=== PATIENT | male | born 1935 | race Caucasian/White ===

== ENCOUNTER 2022-01-12 01:42 | Emergency (ER) | payer MEDICARE, OTHER, SELFPAY ==
[2022-01-12] VITALS (8 sets, daily range): BP systolic 135–149; BP diastolic 73–86; PULSE 64–85; RESP 17–31; TEMP 36.5; O2SAT 91–100; BMI 28.3
--- NOTE | 2022-01-12 01:51 | ED_ITS ---
HPI - Altered Mental Status General Chief Complaint: Dizziness Stated Complaint: hyperglycemia, not feeling right Time Seen by Provider: 01/12/22 01:50 History of Present Illness HPI narrative: Patient is an 86-year-old male with history of insulin-dependent diabetes,vertigo, atrial fibrillation on aspirin presenting today with high glucose and not feeling well. He said he was in his normal state of health earlier today this evening he indulged on a chocolate Blizzard, which he thor oughly enjoyed but then felt his glucose was elevated. At home it was in the low 400 EMS reports that at 355 He is shaky and just does not feel quite right. He has no chest pain or palpitations. 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 He has no numbness tingling or weakness. He has not had any fevers but is quite cold and shaky. He states he is dizzy usually in the mornings. Some days more so than others, however he usually is not this bad. He denies any nausea or vomiting. He is able to open is a has without difficulty. Related Data Home Medications Medication Instructions Recorded Confirmed ESOMEPRAZOLE SODIUM (NEXIUM) 20 mg PO QDAY #0 03/09/12 [CALCIUM ] 600 mg PO QDAY #0 03/09/12 [CINNAMON ] 500 mg PO QDAY #0 03/09/12 [FISH OIL] 1,200 mg PO QDAY #0 03/09/12 aspirin 325 mg tablet,delayed 325 mg PO QDAY #0 03/09/12 release carvedilol 12.5 mg tablet (Coreg) 12.5 mg PO BID #0 03/09/12 furosemide 40 mg tablet 40 mg PO QDAY #0 03/09/12 gemfibrozil 600 mg tablet 600 mg PO BID #0 03/09/12 sertraline 50 mg tablet 50 mg PO QDAY #0 03/09/12 [CINNAMON] 1,000 mg PO BID #0 09/16/17 [COQ10] 300 mg PO QDAY #0 09/16/17 atorvastatin 10 mg tablet (Lipitor) 10 mg PO QDAY #0 09/16/17 gabapentin 300 mg capsule 300 mg PO HSP PRN #0 09/16/17 (Neurontin) insulin glargine 100 unit/mL (3 5 unit SQ QDAY #0 09/16/17 mL) subcutaneous pen (Lantus Solostar U-100 Insulin) lisinopril 2.5 mg tablet 2.5 mg PO QDAY #0 09/16/17 metformin 500 mg tablet 500 mg PO BIDCC #0 09/16/17 (Glucophage) pantoprazole 20 mg tablet,delayed 40 mg PO QDAY #0 09/16/17 release (Protonix) torsemide 20 mg tablet 20 mg PO QDAY #0 09/16/17 Previous Rx's Medication Instructions Recorded cephalexin 500 mg capsule (Keflex) 500 mg PO Q6H #21 cap 09/16/17 meclizine 25 mg tablet 25 mg PO TID PRN #10 tab 01/12/22 Allergies Allergy/AdvReac Type Severity Reaction Status Date / Time codeine [CODEINE] Allergy Intermediate Unverified 11/19/17 12:00 niacin [NIACIN] Allergy Unknown Unverified 11/19/17 12:00 doxycycline [DOXYCYCLINE] AdvReac Unknown HEADACHE Unverified 11/19/17 12:00 Review of Systems Review of Systems Narrative: GENERAL: See HPI HEENT: Denies sinus pain, ear pain, sore throat, difficulty swallowing, neck pain RESPIRATORY: Denies dyspnea, cough, wheezing, hemoptysis, sputum. CARDIOVASCULAR: See HPI GASTROINTESTINAL: Denies nausea, vomiting, abdominal pain, diarrhea, constipation, melena. : Denies dysuria, frequency, incontinence, hematuria, urinary retention, flank pain. MUSCULOSKELETAL: Denies weakness, joint pain, or bony pain SKIN: No rash, no erythema, no pruritus NEUROLOGIC: Denies weakness, dizziness, headache, numbness, change in speech, confusion PSYCHIATRIC: No concerning psychosocial issues. 12 point review of systems is negative except for those stated above and HPI Patient History Medical History (Updated 01/12/22 @ 06:32 by Lidia Sawyer DO) Diabetes Exam Initial Vital Signs Initial Vital Signs: Vital Signs Blood Pressure 143/75 H 01/12/22 01:50 GENERAL: Alert 86-year-old male no acute distress HEENT: Head atraumatic,EOMI, pupils reactive, face symmetric no nystagmus moist mucous membranes CARDIOVASCULAR: Irregularly irregular RESPIRATORY: Breath sounds equal bilaterally, no wheezes rales or rhonchi. ABDOMEN: Soft, nontender. Normoactive bowel sounds all 4 quadrants. No guarding or rebound. EXTREMITIES: Normal range of motion, no clubbing or edema. Neurovascularly int act. Pain and limited range of motion in left shoulder. Also pain left hip been limited range of motion. NEUROLOGICAL: Alert and oriented x4.Normal gait and speech. [facility] strength equal bilaterally moving all extremities SKIN: Warm, dry, no laceration, no petechiae, no rashes or lesions. Course Orders Ordered: ED Orders 01/12/22 01:51 CT head/brain wo con Stat XR chest 1V Stat EKG-12 Lead Stat 01/12/22 02:22 BNP [NT-proBNP (BNP-Adult 18+)] Stat Complete Blood Count AUTO DIFF Stat Comprehensive Metabolic Panel Stat Lactate (Lactic Acid) Stat Lipase Stat Partial Thromboplastin Time Stat Procalcitonin Stat Prothrombin Time INR Stat Troponin & CK Cardiac Panel Stat Discontinued Medications Sodium Chloride (Normal Saline 0.9%) 1,000 mls @ 150 mls/hr IV CONT JAYLON Last Infusion: 01/12/22 04:14 Dose: 0 mls/hr Documented by: Admin: 01/12/22 02:39 Dose: 150 mls/hr Documented by: IVA Meclizine HCl (Meclizine Hcl 12.5 Mg Tablet) 25 mg PO NOW ONE Stop: 01/12/22 03:11 Last Admin: 01/12/22 03:21 Dose: 25 mg Documented by: IVA Vital Signs Vital signs: Vital Signs - 8 hr 01/12/22 01:50 01/12/22 01:51 01/12/22 01:59 Temperature 97.7 F Pulse Rate 75 85 Respiratory Rate 20 Blood Pressure 143/75 H 143/75 H Pulse Oximetry 91 01/12/22 02:02 01/12/22 02:30 01/12/22 02:38 Temperature Pulse Rate 82 80 69 Respiratory Rate 31 H 23 Blood Pressure 135/86 Pulse Oximetry 97 100 100 01/12/22 03:00 01/12/22 03:30 Temperature Pulse Rate 66 64 Respiratory Rate 17 21 Blood Pressure 149/76 H 145/73 H Pulse Oximetry 99 98 MDM - Altered Mental Status Lab Data Result diagrams: 01/12/22 02:22 01/12/22 02:22 Labs: Lab Results 01/12/22 01/12/22 01/12/22 Range/Units 02:22 02:22 02:22 WBC 7.1 (4.5-11.0) X10^3/uL RBC 4.03 L (4.5-5.9) X10^6/uL Hgb 12.6 L (13.5-17.5) g/dL Hct 36.6 L (41-53) % MCV 90.7 (80-100) fL MCH 31.2 (26-34) PG MCHC 34.4 (30-36) % RDW 13.3 (11.6-14.8) % Plt Count 166 (150-400) X10^3/uL Neut % (Auto) 50.4 (50-75) % Lymph % (Auto) 40.0 (25-40) % [place] % (Auto) 7.4 (3-14) % Eos % (Auto) 1.8 L (2-4) % Baso % (Auto) 0.4 (0-2) % Neut # (Auto) 3600 (9238-9382) /uL Lymph # (Auto) 2900 (5713-8513) /uL [place] # (Auto) 500 (0-900) /uL Eos # (Auto) 100 (0-450) /uL Baso # (Auto) 0 (0-100) /uL PT 11.2 (10.1-12.7) SECONDS INR 1.0 (0.9-1.3) APTT 30 (26.4-36.2) SECONDS Sodium 136 L (137-145) mmol/L Potassium 3.7 (3.4-5.1) mmol/L Chloride 104 (98-107) mmol/L Carbon Dioxide 23 (22-32) mmol/L BUN 21 H (9-20) mg/dL Creatinine 0.70 (0.66-1.25) mg/dL Estimated GFR > 60 (>60) mL/min BUN/Creatinine Ratio 30.0 H (6-22) Glucose 286 H (80-110) mg/dL Lactate (0.7-2.1) mmol/L Calcium 8.7 (8.4-10.2) mg/dL Total Bilirubin 0.6 (0.2-1.3) mg/dL AST 50 (17-59) IU/L ALT 17 (<50) IU/L Alkaline Phosphatase 113 (38-126) U/L Total Creatine Kinase 83 (55-170) U/L CK-MB (CK-2) TNP CK-MB (CK-2) Rel Index TNP Troponin I < 0.012 (0.01-0.034) ng/mL NT-Pro-B Natriuret Pep (<450) pg/mL Total Protein 6.7 (6.3-8.2) g/dL Albumin 3.8 (3.5-5.0) g/dL Globulin 2.9 (1.7-4.1) g/dL Albumin/Globulin Ratio 1.3 (1.0-2.8) Lipase 407 H (23-300) U/L Procalcitonin 0.04 (<0.5) ng/mL 01/12/22 01/12/22 Range/Units 02:22 02:22 WBC (4.5-11.0) X10^3/uL RBC (4.5-5.9) X10^6/uL Hgb (13.5-17.5) g/dL Hct (41-53) % MCV (80-100) fL MCH (26-34) PG MCHC (30-36) % RDW (11.6-14.8) % Plt Count (150-400) X10^3/uL Neut % (Auto) (50-75) % Lymph % (Auto) (25-40) % [place] % (Auto) (3-14) % Eos % (Auto) (2-4) % Baso % (Auto) (0-2) % Neut # (Auto) (4505-6670) /uL Lymph # (Auto) (6590-9372) /uL [place] # (Auto) (0-900) /uL Eos # (Auto) (0-450) /uL Baso # (Auto) (0-100) /uL PT (10.1-12.7) SECONDS INR (0.9-1.3) APTT (26.4-36.2) SECONDS Sodium (137-145) mmol/L Potassium (3.4-5.1) mmol/L Chloride (98-107) mmol/L Carbon Dioxide (22-32) mmol/L BUN (9-20) mg/dL Creatinine (0.66-1.25) mg/dL Estimated GFR (>60) mL/min BUN/Creatinine Ratio (6-22) Glucose (80-110) mg/dL Lactate 2.6 H (0.7-2.1) mmol/L Calcium (8.4-10.2) mg/dL Total Bilirubin (0.2-1.3) mg/dL AST (17-59) IU/L ALT (<50) IU/L Alkaline Phosphatase (38-126) U/L Total Creatine Kinase (55-170) U/L CK-MB (CK-2) CK-MB (CK-2) Rel Index Troponin I (0.01-0.034) ng/mL NT-Pro-B Natriuret Pep 444 (<450) pg/mL Total Protein (6.3-8.2) g/dL Albumin (3.5-5.0) g/dL Globulin (1.7-4.1) g/dL Albumin/Globulin Ratio (1.0-2.8) Lipase (23-300) U/L Procalcitonin (<0.5) ng/mL Urine Dip Bedside Urine Glucose 1000 mg/dl Bedside Urine Bilirubin - Negative Bedside Urine Ketone - Negative Urine Specific [place] 1.015 Bedside Urine Occult Blood - Negative Bedside Urine pH 8.0 Bedside Urine Protein - Negative Bedside Urine Urobilinogen - Negative Bedside Urine Nitrite - Negative Bedside Urine Leukocytes - Negative Esterase Imaging Data CT scan - head: Radiologist's Impression: Per report: No acute findings Chest x-ray: Radiologist's Impression: Preliminary report: Diffuse prominence of pulmonary interstitium. Differential include mild pulmonary edema, multilobe or viral pneumonia. Cardiomegaly ECG Data Interpretation: Atrial fibrillation rate [address] changes similar to previous MDM Narrative Medical decision making narrative: The patient is awake alert and oriented. He is feeling a little dizzy. Glucose is is now 286. Hopefully this dizziness is necessarily related to his hyperglycemia. He was worried that because he ate ice cream and increased his glucose that this made him dizzy. Not sure that they correlate. No sign of infection. He is given meclizine which does seem to help significantly with his dizziness. He ambulates without issue. He has a history of vertigo this is an exacerbation. I do not have suspicion for posterior stroke at this time. He overall is feeling significantly better and is requesting to go home. Daughter is bedside. Seems to be at his baseline. He has significant pains in his left shoulder and the left hip difficult to do an IH but he is able to walk and does not have focal deficits complaints. Discharge Plan Departure Patient Disposition: Home Clinical Impression: Hyperglycemia, Vertigo Instructions: DI for Vertigo Activity Restrictions/Additional Instructions: *You have been diagnosed with vertigo and high glucose *What to do: At this time please monitor your glucose it may have made your dizziness worse this evening. *Continue to take medications as directed Meclizine 25 mg every 8 hours only if needed for dizziness *Follow up with your primary care provider in 2-3 days or call [phone] *Return to ER if you should have worsening dizziness, chest pain, palpitations, confusion or any new, worsening or concerning symptoms Prescriptions: New meclizine 25 mg tablet 25 mg PO TID PRN (Reason: dizziness) Qty: 10 0RF No Action aspirin 325 MG tablet,delayed release (DR/EC) 325 mg PO QDAY Qty: 0 0RF gemfibrozil 600 MG tablet 600 mg PO BID Qty: 0 0RF furosemide 40 MG tablet 40 mg PO QDAY Qty: 0 0RF carvedilol [Coreg] 12.5 MG tablet 12.5 mg PO BID Qty: 0 0RF ESOMEPRAZOLE SODIUM (NEXIUM) 20 mg PO QDAY Qty: 0 0RF sertraline 50 MG tablet 50 mg PO QDAY Qty: 0 0RF [FISH OIL] 1,200 mg PO QDAY Qty: 0 0RF [CALCIUM ] 600 mg PO QDAY Qty: 0 0RF [CINNAMON ] 500 mg PO QDAY Qty: 0 0RF atorvastatin [Lipitor] 10 MG tablet 10 mg PO QDAY Qty: 0 0RF [CINNAMON] 1,000 mg PO BID Qty: 0 0RF [COQ10] 300 mg PO QDAY Qty: 0 0RF gabapentin [Neurontin] 300 MG capsule 300 mg PO HSP PRNQty: 0 0RF lisinopril 2.5 MG tablet 2.5 mg PO QDAY Qty: 0 0RF insulin glargine [Lantus Solostar U-100 Insulin] 100 UNIT/1 ML insulin pen 5 unit SQ QDAY Qty: 0 0RF metformin [Glucophage] 500 MG tablet 500 mg PO BIDCC Qty: 0 0RF pantoprazole [Protonix] 20 MG tablet,delayed release (DR/EC) 40 mg PO QDAY Qty: 0 0RF torsemide 20 MG tablet 20 mg PO QDAY Qty: 0 0RF cephalexin [Keflex] 500 MG capsule 500 mg PO Q6H Qty: 21 0RF Visit Report Forms: Patient Portal/API
--- NOTE | 2022-01-12 01:51 | DI.CT.S_ITS ---
PROCEDURE: CT HEAD/BRAIN WO CON INDICATIONS: doesnt feel right headache TECHNIQUE: Noncontrast 4.5 mm thick angled axial sections acquired from the foramen magnum to the vertex, with coronal and sagittal reformats. For radiation dose reduction, the following was used: automated exposure control, adjustment of mA and/or kV according to patient size. COMPARISON: [facility], CT, HEAD WITHOUT CONTRAST, 09/10/2017, 18:46. FINDINGS: Image quality: Excellent. CSF spaces: Basal cisterns are patent. No extra-axial fluid collections. The ventricles are symmetric in size and shape. Brain: No intracranial bleeds or masses. There is cerebral volume loss for age, with resultant ventricular and sulcal prominence. There are periventricular and deep white matter chronic small vessel ischemic changes. There is intracranial internal carotid artery atherosclerosis. Skull and face: Calvarium and visualized facial bones appear intact, without suspicious lesions. Sinuses: Visualized sinuses and mastoids are clear. IMPRESSION: No acute intracranial disease process. Dictated by: Ella Nelson MD, PhD on 01/12/2022 at 7:14 Approved by: Ella Nelson MD, PhD on 01/12/2022 at 7:18
--- NOTE | 2022-01-12 01:51 | DI.RAD.S_ITS ---
PROCEDURE: XR CHEST 1V INDICATIONS: chest pain TECHNIQUE: One view of the chest was acquired. COMPARISON: [facility], , CHEST 1 VIEW, 09/10/2017, 18:28. FINDINGS: Surgical changes and devices: None. Lungs and pleura: Bilateral lung interstitial prominence not significantly changed compared to September 10, 2017 and likely represents chronic lung disease.. No pleural effusions or pneumothorax. Mediastinum: Mediastinal contours appear normal. Heart enlarged. Bones and chest wall: No suspicious bony lesions. Overlying soft tissues appear unremarkable. IMPRESSION: No acute cardiopulmonary disease process. Dictated by: Ella Nelson MD, PhD on 01/12/2022 at 7:18 Approved by: Ella Nelson MD, PhD on 01/12/2022 at 7:20
--- NOTE | 2022-01-12 02:05 | PC.NURSE ---
pt states he has a hx of vertigo and thsi dizziness feels like his vertigo
[2022-01-12] MEDS: SODIUM CHLORIDE 0.9% 1,000 ML 150 ML IV (02:39)
[2022-01-12 02:40] LABS: Lactate (Lactic Acid) 2.6 mmol/L (0.7-2.1)
[2022-01-12 02:41] LABS: Alanine Aminotransferase 17 IU/L (<50); Albumin 3.8 g/dL (3.5-5.0); Albumin Globulin Ratio 1.3 (1.0-2.8); Alkaline Phosphatase 113 U/L (38-126); Aspartate Aminotransferase 50 IU/L (17-59); Bilirubin Total 0.6 mg/dL (0.2-1.3); Blood Urea Nitrogen 21 mg/dL (9-20); Calcium 8.7 mg/dL (8.4-10.2); Carbon Dioxide 23 mmol/L (22-32); Chloride 104 mmol/L (98-107); Creatine Kinase 83 U/L (55-170); Estimated Glomerular Filt Rate > 60 mL/min (>60); Globulin 2.9 g/dL (1.7-4.1); Glucose 286 mg/dL (80-110); HEMOLYSIS < 15 (0-50); Lipase 407 U/L (23-300); Potassium 3.7 mmol/L (3.4-5.1); Sodium 136 mmol/L (137-145); Total Protein 6.7 g/dL (6.3-8.2)
[2022-01-12 02:48] LABS: Prothrombin Time 11.2 SECONDS (10.1-12.7)
[2022-01-12 02:49] LABS: Add Manual Diff / Slide Review NO; Basophils Absolute Auto 0 /uL (0-100); Basophils Percent Auto 0.4 % (0-2); Eosinophils Absolute Auto 100 /uL (0-450); Eosinophils Percent Auto 1.8 % (2-4); Hematocrit 36.6 % (41-53); Hemoglobin 12.6 g/dL (13.5-17.5); Lymphocytes Absolute Auto 2900 /uL (1100-4500); Mean Corpuscular HGB Conc 34.4 % (30-36); Mean Corpuscular Hemoglobin 31.2 PG (26-34); Mean Corpuscular Volume 90.7 fL (80-100); Monocytes Absolute Auto 500 /uL (0-900); Monocytes Percent Auto 7.4 % (3-14); Neutrophils Absolute Auto 3600 /uL (1500-7000); Neutrophils Percent Auto 50.4 % (50-75); Platelet Count 166 X10^3/uL (150-400); Red Blood Cell Count 4.03 X10^6/uL (4.5-5.9); Red Cell Distribution Width 13.3 % (11.6-14.8); White Blood Cell Count 7.1 X10^3/uL (4.5-11.0)
--- NOTE | 2022-01-12 02:49 | PC.NURSE ---
pt ambulatory to bathroom with walker, at pt's insistence, states he still feels dizzy, not as unbalanced as noted upon arrival.
[2022-01-12 02:50] LABS: PTT Partial Thromboplastin Tim 30 SECONDS (26.4-36.2)
[2022-01-12 02:53] LABS: Troponin I < 0.012 ng/mL (0.01-0.034)
[2022-01-12 02:58] LABS: Procalcitonin 0.04 ng/mL (<0.5)
[2022-01-12] MEDS: MECLIZINE HCL 12.5 MG TABLET 25 MG PO (03:21)
[2022-01-12 03:26] LABS: NT-proBNP (BNP-Adult 18+) 444 pg/mL (<450)
--- NOTE | 2022-01-12 04:00 | PC.NURSE ---
pt states dizziness is gone and he is ready to go home
[2022-01-12 04:26] LABS: Reflexed Lactate in 2 Hours Y
== END 2022-01-12 04:13 | disposition home or self-care (01) ==
PROVIDERS: Emergency Provider Emergency Medicine
DX: E11.65 Type 2 diabetes mellitus with hyperglycemia (principal); R42 Dizziness and giddiness
CPT/HCPCS: 70450; 71045; 80053; 81003; 82550; 83605; 83690; 83880; 84145; 84484; 85025; 85610; 85730; 93005; 93010; 99284

== ENCOUNTER → 2022-09-23 09:33 | Outpatient (CLI) | payer MEDICARE, OTHER, SELFPAY | PROVIDERS: PCP Student in an Organized Health Care Education/Training Program; Referring Provider Dermatology; Visit Provider Surgery | DX: I87.2 Venous insufficiency (chronic) (peripheral) (principal); L97.822 Non-pressure chronic ulcer of other part of left lower leg with fat layer exposed; L97.812 Non-pressure chronic ulcer of other part of right lower leg with fat layer exposed; E11.622 Type 2 diabetes mellitus with other skin ulcer; E11.51 Type 2 diabetes mellitus with diabetic peripheral angiopathy without gangrene; M79.604 Pain in right leg; M79.605 Pain in left leg | CPT/HCPCS: 87070; 87077; 87147; 87205; 97597; 97598; 99213 ==

== ENCOUNTER → 2022-09-25 12:59 | Outpatient (CLI) | payer MEDICARE, OTHER, SELFPAY | PROVIDERS: PCP Student in an Organized Health Care Education/Training Program; Referring Provider Student in an Organized Health Care Education/Training Program; Visit Provider Surgery | DX: I87.2 Venous insufficiency (chronic) (peripheral) (principal); L97.822 Non-pressure chronic ulcer of other part of left lower leg with fat layer exposed; L97.812 Non-pressure chronic ulcer of other part of right lower leg with fat layer exposed; M79.604 Pain in right leg; M79.605 Pain in left leg | CPT/HCPCS: 29581 ==

== ENCOUNTER → 2022-09-27 11:52 | Outpatient (CLI) | payer MEDICARE, OTHER, SELFPAY | PROVIDERS: PCP Student in an Organized Health Care Education/Training Program; Referring Provider Dermatology; Visit Provider Nurse Practitioner Family | DX: I87.2 Venous insufficiency (chronic) (peripheral) (principal); L97.822 Non-pressure chronic ulcer of other part of left lower leg with fat layer exposed; L97.812 Non-pressure chronic ulcer of other part of right lower leg with fat layer exposed; R60.0 Localized edema; M79.605 Pain in left leg; M79.604 Pain in right leg | CPT/HCPCS: 29581 ==

== ENCOUNTER → 2022-09-30 12:47 | Outpatient (CLI) | payer MEDICARE, OTHER, SELFPAY | PROVIDERS: PCP Student in an Organized Health Care Education/Training Program; Referring Provider Student in an Organized Health Care Education/Training Program; Visit Provider Surgery | DX: I87.2 Venous insufficiency (chronic) (peripheral) (principal); L97.822 Non-pressure chronic ulcer of other part of left lower leg with fat layer exposed; L97.812 Non-pressure chronic ulcer of other part of right lower leg with fat layer exposed; R60.0 Localized edema; M79.601 Pain in right arm; M79.605 Pain in left leg; L53.9 Erythematous condition, unspecified | CPT/HCPCS: 29581 ==

== ENCOUNTER → 2022-10-02 10:02 | Outpatient (CLI) | payer MEDICARE, OTHER, SELFPAY | PROVIDERS: PCP Student in an Organized Health Care Education/Training Program; Referring Provider Dermatology; Visit Provider Surgery | DX: I87.2 Venous insufficiency (chronic) (peripheral) (principal); E11.622 Type 2 diabetes mellitus with other skin ulcer; L97.822 Non-pressure chronic ulcer of other part of left lower leg with fat layer exposed; L97.812 Non-pressure chronic ulcer of other part of right lower leg with fat layer exposed; M79.605 Pain in left leg; M79.604 Pain in right leg | CPT/HCPCS: 97597; 97598 ==

== ENCOUNTER → 2022-10-04 10:38 | Outpatient (CLI) | payer MEDICARE, OTHER, SELFPAY | PROVIDERS: PCP Student in an Organized Health Care Education/Training Program; Referring Provider Student in an Organized Health Care Education/Training Program; Visit Provider Nurse Practitioner Family | DX: I87.2 Venous insufficiency (chronic) (peripheral) (principal); L97.822 Non-pressure chronic ulcer of other part of left lower leg with fat layer exposed; L97.812 Non-pressure chronic ulcer of other part of right lower leg with fat layer exposed | CPT/HCPCS: 29581 ==

== ENCOUNTER → 2022-10-09 07:13 | Outpatient (CLI) | payer MEDICARE, OTHER, SELFPAY ==
--- NOTE | 2022-10-09 07:15 | DI.US.S_ITS ---
PROCEDURE: US ARTERIAL DUPLEX LE BI INDICATIONS: NON-HEALING ULCERS BILATERAL TECHNIQUE: Color and pulse Doppler interrogation was performed of both lower extremity arterial systems, with image documentation. COMPARISON: [facility], , ARTERIAL LOW.EXTREM.BILATERAL, 10/06/2017, 8:33. FINDINGS: Right lower extremity: Common femoral artery: 102 cm/sec, with triphasic flow. Deep femoral artery: 59 cm/sec, with triphasic flow. Proximal superficial femoral artery: 80 cm/sec, with triphasic flow. Mid superficial femoral artery: 94 cm/sec, with triphasic flow. Distal superficial femoral artery: 76 cm/sec, with triphasic flow. Popliteal artery: 67 cm/sec, with triphasic flow. Posterior tibial artery: 62 cm/sec, with triphasic flow. Anterior tibial artery/dorsalis pedis: 72 cm/sec, with triphasic flow. Christiansen-scale imaging description: Atheromatous plaque is present throughout the right lower extremity arteries. These are most extensive within the distal right SFA. Triphasic waveforms are present throughout. Left lower extremity: Common femoral artery: 100 cm/sec, with triphasic flow. Deep femoral artery: 47 cm/sec, with triphasic flow. Proximal superficial femoral artery: 90 cm/sec, with triphasic flow. Mid superficial femoral artery: 96 cm/sec, with triphasic flow. Distal superficial femoral artery: 102 cm/sec, with triphasic flow. Popliteal artery: 85 cm/sec, with triphasic flow. Posterior tibial artery: 56 cm/sec, with triphasic flow. Anterior tibial artery/dorsalis pedis: 40 cm/sec, with triphasic flow. Christiansen-scale imaging description: Atheromatous calcifications are present throughout the left lower extremity arteries. These are most significant throughout the left SFA. IMPRESSION: Atheromatous calcifications bilaterally. Triphasic waveforms are present throughout. No sonographic findings to suggest a focal hemodynamically significant stenosis. Dictated by: Lauren Jack M.D. on 10/09/2022 at 13:28 Approved by: Lauren Jack M.D. on 10/09/2022 at 13:31
== END ==
PROVIDERS: PCP Student in an Organized Health Care Education/Training Program; Referring Provider Surgery; Visit Provider Surgery
DX: L97.212 Non-pressure chronic ulcer of right calf with fat layer exposed (principal); L97.222 Non-pressure chronic ulcer of left calf with fat layer exposed; I70.203 Unspecified atherosclerosis of native arteries of extremities, bilateral legs
CPT/HCPCS: 93925

== ENCOUNTER → 2022-10-09 09:01 | Outpatient (CLI) | payer MEDICARE, OTHER, SELFPAY | PROVIDERS: PCP Student in an Organized Health Care Education/Training Program; Referring Provider Dermatology; Visit Provider Surgery | DX: L97.212 Non-pressure chronic ulcer of right calf with fat layer exposed (principal); L97.222 Non-pressure chronic ulcer of left calf with fat layer exposed; I70.203 Unspecified atherosclerosis of native arteries of extremities, bilateral legs; I87.2 Venous insufficiency (chronic) (peripheral); L97.822 Non-pressure chronic ulcer of other part of left lower leg with fat layer exposed; L97.812 Non-pressure chronic ulcer of other part of right lower leg with fat layer exposed; E11.51 Type 2 diabetes mellitus with diabetic peripheral angiopathy without gangrene; Z86.718 Personal history of other venous thrombosis and embolism; R60.0 Localized edema; L53.9 Erythematous condition, unspecified | CPT/HCPCS: 29581; 93925; 97597; 97598; 99213 ==

== ENCOUNTER → 2022-10-11 09:49 | Outpatient (CLI) | payer MEDICARE, OTHER, SELFPAY | PROVIDERS: PCP Student in an Organized Health Care Education/Training Program; Referring Provider Dermatology; Visit Provider Surgery | DX: I87.2 Venous insufficiency (chronic) (peripheral) (principal); L97.822 Non-pressure chronic ulcer of other part of left lower leg with fat layer exposed; L97.812 Non-pressure chronic ulcer of other part of right lower leg with fat layer exposed; M79.604 Pain in right leg; M79.605 Pain in left leg; R60.0 Localized edema | CPT/HCPCS: 99214 ==

== ENCOUNTER → 2022-10-14 15:04 | Outpatient (CLI) | payer MEDICARE, OTHER, SELFPAY | PROVIDERS: PCP Student in an Organized Health Care Education/Training Program; Referring Provider Student in an Organized Health Care Education/Training Program; Visit Provider Surgery | DX: I87.2 Venous insufficiency (chronic) (peripheral) (principal); L97.822 Non-pressure chronic ulcer of other part of left lower leg with fat layer exposed; L97.812 Non-pressure chronic ulcer of other part of right lower leg with fat layer exposed; M79.605 Pain in left leg; M79.604 Pain in right leg; R60.0 Localized edema | CPT/HCPCS: 29581 ==

== ENCOUNTER → 2022-10-16 10:09 | Outpatient (CLI) | payer MEDICARE, OTHER, SELFPAY | PROVIDERS: PCP Student in an Organized Health Care Education/Training Program; Referring Provider Student in an Organized Health Care Education/Training Program; Visit Provider Surgery | DX: L97.812 Non-pressure chronic ulcer of other part of right lower leg with fat layer exposed (principal); L97.822 Non-pressure chronic ulcer of other part of left lower leg with fat layer exposed; I87.2 Venous insufficiency (chronic) (peripheral); R60.0 Localized edema; L53.9 Erythematous condition, unspecified; L85.3 Xerosis cutis; E11.622 Type 2 diabetes mellitus with other skin ulcer; I73.9 Peripheral vascular disease, unspecified | CPT/HCPCS: 29581; 97602; 99213 ==

== ENCOUNTER → 2022-10-18 09:24 | Outpatient (CLI) | payer MEDICARE, OTHER, SELFPAY | PROVIDERS: PCP Student in an Organized Health Care Education/Training Program; Referring Provider Dermatology; Visit Provider Nurse Practitioner Family | DX: I87.2 Venous insufficiency (chronic) (peripheral) (principal); L97.822 Non-pressure chronic ulcer of other part of left lower leg with fat layer exposed; L97.812 Non-pressure chronic ulcer of other part of right lower leg with fat layer exposed; M79.605 Pain in left leg; M79.604 Pain in right leg; R60.0 Localized edema; L53.9 Erythematous condition, unspecified; R21 Rash and other nonspecific skin eruption | CPT/HCPCS: 29581 ==

== ENCOUNTER → 2022-10-23 08:54 | Outpatient (CLI) | payer MEDICARE, OTHER, SELFPAY | PROVIDERS: PCP Student in an Organized Health Care Education/Training Program; Referring Provider Dermatology; Visit Provider Surgery | DX: I87.2 Venous insufficiency (chronic) (peripheral) (principal); I73.9 Peripheral vascular disease, unspecified; L97.822 Non-pressure chronic ulcer of other part of left lower leg with fat layer exposed; L97.812 Non-pressure chronic ulcer of other part of right lower leg with fat layer exposed; R60.0 Localized edema; R21 Rash and other nonspecific skin eruption | CPT/HCPCS: 29581; 97597 ==

== ENCOUNTER → 2022-10-30 09:39 | Outpatient (CLI) | payer MEDICARE, OTHER, SELFPAY | PROVIDERS: PCP Student in an Organized Health Care Education/Training Program; Referring Provider Dermatology; Visit Provider Surgery | DX: I87.2 Venous insufficiency (chronic) (peripheral) (principal); L97.822 Non-pressure chronic ulcer of other part of left lower leg with fat layer exposed; M79.605 Pain in left leg; R60.0 Localized edema; L53.9 Erythematous condition, unspecified | CPT/HCPCS: 29581; 99213 ==

== ENCOUNTER → 2022-11-06 09:03 | Outpatient (CLI) | payer MEDICARE, OTHER, SELFPAY | PROVIDERS: PCP Student in an Organized Health Care Education/Training Program; Referring Provider Dermatology; Visit Provider Surgery | DX: I87.2 Venous insufficiency (chronic) (peripheral) (principal); E11.51 Type 2 diabetes mellitus with diabetic peripheral angiopathy without gangrene; R60.0 Localized edema | CPT/HCPCS: 99213 ==

== ENCOUNTER → 2022-11-12 08:19 | Outpatient (CLI) | payer MEDICARE, OTHER, SELFPAY | PROVIDERS: PCP Student in an Organized Health Care Education/Training Program; Referring Provider Dermatology; Visit Provider Surgery | DX: S81.802A Unspecified open wound, left lower leg, initial encounter (principal) | CPT/HCPCS: 99212 ==

== ENCOUNTER → 2022-11-13 11:02 | Outpatient (CLI) | payer MEDICARE, OTHER, SELFPAY | PROVIDERS: PCP Student in an Organized Health Care Education/Training Program; Referring Provider Student in an Organized Health Care Education/Training Program; Visit Provider Nurse Practitioner Family | DX: I87.2 Venous insufficiency (chronic) (peripheral) (principal); L97.212 Non-pressure chronic ulcer of right calf with fat layer exposed; L97.222 Non-pressure chronic ulcer of left calf with fat layer exposed; L03.116 Cellulitis of left lower limb | CPT/HCPCS: 29581; 99212; 99213 ==

== ENCOUNTER → 2022-11-20 08:40 | Outpatient (CLI) | payer MEDICARE, OTHER, SELFPAY | PROVIDERS: PCP Student in an Organized Health Care Education/Training Program; Referring Provider Student in an Organized Health Care Education/Training Program; Visit Provider Surgery | DX: I87.2 Venous insufficiency (chronic) (peripheral) (principal); L97.222 Non-pressure chronic ulcer of left calf with fat layer exposed | CPT/HCPCS: 87070; 87147; 87205; 97597; 97598; 99213 ==

== ENCOUNTER → 2022-11-27 09:40 | Outpatient (CLI) | payer MEDICARE, OTHER, SELFPAY | PROVIDERS: PCP Student in an Organized Health Care Education/Training Program; Referring Provider Dermatology; Visit Provider Surgery | DX: I87.2 Venous insufficiency (chronic) (peripheral) (principal); E11.622 Type 2 diabetes mellitus with other skin ulcer; L97.822 Non-pressure chronic ulcer of other part of left lower leg with fat layer exposed; E11.51 Type 2 diabetes mellitus with diabetic peripheral angiopathy without gangrene; R60.0 Localized edema | CPT/HCPCS: 29581; 99212; 99213 ==

== ENCOUNTER → 2022-12-04 08:47 | Outpatient (CLI) | payer MEDICARE, OTHER, SELFPAY | PROVIDERS: PCP Student in an Organized Health Care Education/Training Program; Referring Provider Student in an Organized Health Care Education/Training Program; Visit Provider Nurse Practitioner Family | DX: I87.2 Venous insufficiency (chronic) (peripheral) (principal); R60.0 Localized edema; L53.9 Erythematous condition, unspecified | CPT/HCPCS: 29581; 99213 ==

== ENCOUNTER → 2022-12-11 10:09 | Outpatient (CLI) | payer MEDICARE, OTHER, SELFPAY | PROVIDERS: PCP Student in an Organized Health Care Education/Training Program; Referring Provider Student in an Organized Health Care Education/Training Program; Visit Provider Surgery | DX: I87.2 Venous insufficiency (chronic) (peripheral) (principal) | CPT/HCPCS: 99211; 99213 ==